=== PATIENT | female | born 1960 | race Caucasian/White ===

== ENCOUNTER → 2018-08-24 14:02 | Outpatient (REF) | payer OTHER, SELFPAY | LOC: LAB 14:02 | PROVIDERS: Visit Provider Otolaryngology Facial Plastic Surgery | DX: J32.8 Other chronic sinusitis (principal); J30.89 Other allergic rhinitis; J34.2 Deviated nasal septum; J32.4 Chronic pansinusitis | CPT/HCPCS: 87070; 87147; 87205 ==

== ENCOUNTER 2019-04-11 17:31 | Emergency (ER) | payer OTHER, SELFPAY ==
[2019-04-11 17:35] VITALS: BP 158/93; PULSE 96; RESP 15; TEMP 36.2; O2SAT 95
[2019-04-11 17:58] VITALS: BP 140/59; PULSE 84; O2SAT 98
--- NOTE | 2019-04-11 17:58 | PC.NURSE ---
c collar removed by Daily Love
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
== END 2019-04-11 18:41 | disposition home or self-care (01) ==
PROVIDERS: Emergency Provider Nurse Practitioner
DX: S13.4XXA Sprain of ligaments of cervical spine, initial encounter (principal); S16.1XXA Strain of muscle, fascia and tendon at neck level, initial encounter; V43.52XA Car driver injured in collision with other type car in traffic accident, initial encounter
CPT/HCPCS: 99281; 99283